=== PATIENT | female | born 1955 | race Caucasian/White ===

== ENCOUNTER 2022-12-13 09:09 | Outpatient (REF) | payer MEDICARE, SELFPAY ==
--- NOTE | 2022-12-13 09:16 | EMG_ITS ---
Please see scanned EMG / Nerve Conduction Report. MTDD
== END 2022-12-13 09:10 | disposition home or self-care (01) ==
LOC: HO.NEURO 09:09
PROVIDERS: PCP Internal Medicine; Visit Provider Internal Medicine
DX: M79.601 Pain in right arm (principal); R20.0 Anesthesia of skin
CPT/HCPCS: 95860; 95886; 95907; 95910

== ENCOUNTER → 2023-07-27 11:15 | Outpatient (BNV) | payer MEDICARE, SELFPAY | PROVIDERS: PCP Internal Medicine; Visit Provider Physical Medicine & Rehabilitation | DX: M79.602 Pain in left arm (principal) | CPT/HCPCS: 95886; 95909 ==

== ENCOUNTER 2023-07-27 14:17 | Outpatient (REF) | payer MEDICARE, SELFPAY ==
--- NOTE | 2023-07-27 11:15 | EMG_ITS ---
Chief complaint: Left forearm pain radiating proximally to shoulder area. Tender on biceps and trapezius. Denies any pain in wrists or any finger numbness. Reason for referral: Evaluate for neuropathy or radiculopathy Referred by: Dr. Karel Jackson Procedure done: Left upper extremity NCS/EMG Precautions and/or limitations: None The limb temperature was monitored continuously and remained between 32-36 degrees C during the performance of the NCS. Nerve Conduction Studies Anti Sensory Summary Table ?Stim Site NR Onset (ms) Norm Onset (ms) Peak (ms) Norm Peak (ms) O-P Amp (?V) Norm O-P Amp Site1 Site2 Delta-0 (ms) Dist (cm) Everardo (m/s) Norm Everardo (m/s) Left Median Anti Sensory (2nd Digit) Wrist ? 2.6 3.6 <3.6 25.1 >10 Wrist 2nd Digit 2.6 14.0 54 Left Ulnar Anti Sensory (5th Digit) Wrist ? 2.5 3.3 <3.7 36.2 >15.0 Wrist 5th Digit 2.5 14.0 56 Motor Summary Table ?Stim Site NR Onset (ms) Norm Onset (ms) O-P Amp (mV) Norm O-P Amp iAmp (mV) Amp (1st) (%) Site1 Site2 Delta-0 (ms) Dist (cm) Everardo (m/s) Norm Everardo (m/s) Left Median Motor (Abd Poll Brev) Wrist ? 3.5 <3.9 11.5 >4.5 13.2 100.0 Elbow Wrist 3.7 18.0 49 >45 Elbow ? 7.2 10.9 12.6 94.8 Left Ulnar Motor (Abd Dig Minimi) Wrist ? 3.0 <3.0 10.4 >5 12.5 100.0 B Elbow Wrist 3.3 18.5 56 >45 B Elbow ? 6.3 10.0 12.0 96.2 A Elbow B Elbow 1.7 10.0 59 >45 A Elbow ? 8.0 9.6 11.6 92.3 Comparison Summary Table ?Stim Site NR Peak (ms) Norm Peak (ms) P-T Amp (?V) Site1 Site2 Delta-P (ms) Norm Delta (ms) Left Median/Radial Dig I Comparison (Digit 1 - 10cm) Median ? 2.8 <2.9 23.6 Median Radial 0.0 Radial ? 2.8 <2.8 23.0 EMG ?Side Muscle Nerve Root Ins Act Fibs Psw Amp Dur Poly Recrt Int Pat Comment Left 1stDorInt Ulnar C8-T1 Nml Nml Nml Nml Nml 0 Nml Complete Left FlexCarRad Median C6-7 Nml Nml Nml Nml Nml 0 Nml Complete Left Biceps Musculocut C5-6 Nml Nml Nml Nml Nml 0 Nml Complete Left Triceps Radial C6-7-8 Nml Nml Nml Nml Nml 0 Nml Complete Left Deltoid Axillary C5-6 Nml Nml Nml Nml Nml 0 Nml Complete Paraspinal EMG ?Side Muscle Nerve Root Ins Act Fibs Psw Comment Right Cervical Upper Rami Nml Nml Nml Right Cervical Mid Rami Nml Nml Nml Right Cervical Lower Rami Nml Nml Nml Left Cervical Upper Rami Nml Nml Nml Left Cervical Mid Rami Nml Nml Nml Left Cervical Lower Rami Nml Nml Nml FINDINGS: All motor and sensory nerves tested showed normal latencies, amplitudes and conduction velocities. Concentric needle EMG was performed in selected muscles of the left upper extremity and cervical paraspinals. Study did not reveal signs of electric abnormalities as shown in the table below. IMPRESSION: 1. This is a normal study. 2. There is no electrodiagnostic evidence for median neuropathy, ulnar neuropathy, brachial plexopathy, or cervical radiculopathy. Thank you for your kind referral. Marlen Marquis MD, ELOY Board Certified, [place] [employer] and [employer] (ABPMR) Board Certified, [place] [employer] Electro[employer] (ABEM) CODIN [id number] [facility]
== END 2023-07-27 14:18 | disposition home or self-care (01) ==
LOC: HO.NEURO 14:17
PROVIDERS: PCP Internal Medicine; Visit Provider Internal Medicine
DX: R20.2 Paresthesia of skin (principal)
CPT/HCPCS: 95886; 95909